=== PATIENT | female | born 1995 | race Caucasian/White ===

== ENCOUNTER 2017-01-10 12:41 | Emergency (ER) | payer MEDICAID ==
[~2017-01-10] VITALS: Ht 157.5 cm; Wt 54.9 kg
[2017-01-10 13:15] VITALS: BP_SYST 105
[2017-01-10 13:54] LABS: BILIRUBIN,URINE 1+ (NEGATIVE); BLOOD, URINE 2+ (NEGATIVE); CLARITY/URINE HAZY (CLEAR); COLOR,URINE AMBER (YELLOW); GLUCOSE,URINE NEGATIVE (NEGATIVE); KETONES,URINE 1+ (NEGATIVE); LEUKOCYTE ESTERASE ,URINE 2+ (NEGATIVE); NITRITE, URINE POSITIVE (NEGATIVE); PROTEIN URINE 2+ (NEGATIVE)
[2017-01-10 14:04] LABS: BASOPHILS # (AUTO) 0.2 K/uL (0.0-0.2); EOSINOPHILS % (AUTO) 0.1 % (0.0-4.0); HEMATOCRIT 46.5 % (36-48); HEMOGLOBIN 15.2 g/dL (12.0-16.0); LYMPHOCYTES # (AUTO) 0.6 K/uL (1.0-5.5); MEAN CORPUSCULAR HEMOGLOBIN 29 pg (27-31); MEAN CORPUSCULAR HGB CONC 33 % (32-36); MEAN CORPUSCULAR VOLUME 89 fL (79.0-98.0); MONOCYTES # (AUTO) 0.4 K/uL (0.0-1.0); MONOCYTES % (AUTO) 3.4 % (1.7-9.3); NEUTROPHILS # (AUTO) 10.8 K/uL (1.8-7.7); NEUTROPHILS % (AUTO) 89.5 % (40.0-70.0); PLATELET COUNT (AUTO) 205 K/uL (130-430); RED CELL DISTRIBUTION WIDTH 11.5 % (9.0-15.0)
[2017-01-10 14:09] LABS: CALCIUM 9.9 mg/dL (8.4-11.0); CREATININE 1.13 mg/dL (0.55-1.30); POTASSIUM 3.8 mmol/L (3.5-5.1)
[2017-01-10 14:13] LABS: PROTHROMBIN TIME 11.2 SECS (9.5-12.5)
[2017-01-10 14:14] LABS: BACTERIA,URINE MANY /HPF (None Seen); MUCUS,URINE 1+ /LPF (None Seen); WBC,URINE 50-80 /HPF (0-3)
[2017-01-10 14:15] LABS: ALBUMIN 4.5 g/dL (3.4-4.8); TOTAL BILIRUBIN 1.5 mg/dL (0.0-1.0)
[2017-01-10] MEDS ORDERED: cefTRIAXone 1 GM VIAL IM ONE (15:15)
[2017-01-10] MEDS ORDERED: LIDOCAINE 1%, 20 ML MDV 20 ML ONE (15:34)
[2017-01-10 15:55] VITALS: BP_SYST 109
== END 2017-01-10 15:55 | disposition home or self-care (01) ==
LOC: SED 12:41
DX: N39.0 Urinary tract infection, site not specified (principal); J45.909 Unspecified asthma, uncomplicated
CPT/HCPCS: 36415; 74176; 80053; 81000; 81025; 82150; 83690; 84703; 85025; 85610; 85730; 87086; 87186; 96372; 99285; J0696; J2001

== ENCOUNTER 2018-03-12 16:23 | Emergency (ER) | payer MEDICAID ==
[~2018-03-12] VITALS: Ht 157.5 cm; Wt 56.7 kg
[2018-03-12 16:25] VITALS: BP_SYST 123
[2018-03-12 17:49] VITALS: BP_SYST 123
== END 2018-03-12 17:54 | disposition home or self-care (01) ==
LOC: SED 16:23
DX: M54.5 Low back pain (principal)
CPT/HCPCS: 81025; 99283